=== PATIENT | male | born 1975 | race Caucasian/White ===

== ENCOUNTER 2022-02-07 13:53 | Outpatient (CLI) | payer OTHER ==
--- NOTE | 2022-02-07 15:09 | XRAY Report ---
PROCEDURE: Cervical Spine 2 View INDICATIONS: PAIN TECHNIQUE: 3 view(s) of the cervical spine were acquired. COMPARISON: None. FINDINGS: Bones: No fractures or dislocations to the C7 level. The lateral masses of C1 appear intact on the odontoid view. No suspicious bony lesions. Mild degenerative changes noted in the lower cervical spi ne. Mild C5-C6 and C6-C7 facet arthropathy. Soft tissues: No prevertebral soft tissue swelling. IMPRESSION: 1. Multilevel degenerative disc disease. 2. Multilevel facet arthropathy. 3. No fracture. No acute osseous lesion. If there is continued clinical concern for pathology, then M RI should be considered for further evaluation. Reviewed by: Samantha Hong MD, PhD on 02/07/2022 3:08 PM PST Approved by: Samantha Hong MD, PhD on 02/07/2022 3:08 PM PST Station ID: [id number]
--- NOTE | 2022-02-07 15:10 | XRAY Report ---
PROCEDURE: Knee 3 View BILAT INDICATIONS: PAIN TECHNIQUE: 2 views of the right and left knee(s) were acquired. COMPARISON: None. FINDINGS: Bones: No fractures or dislocations. No suspicious bony lesions. Mild bilateral knee tricompartment al osteoarthritic degenerative changes with marginal osteophytosis. Soft tissues: No joint effusion. No suspicious soft tissue calcifications. IMPRESSION: Mild bilateral knee tricompartmental osteoarthritis. Reviewed by: Samantha Hong MD, PhD on 02/07/2022 3:09 PM PST Approved by: Samantha Hong MD, PhD on 02/07/2022 3:09 PM PST Station ID: [id number]
--- NOTE | 2022-02-07 15:10 | XRAY Report ---
PROCEDURE: Lumbar Spine 2 View INDICATIONS: PAIN TECHNIQUE: 2 views of the lumbar spine were acquired. COMPARISON: None. FINDINGS: Bones: 5 hml-cyl-tkwthrk vertebrae are present. There is normal bony alignment. No vertebral body compression fractures. No suspicious bony lesions. Mild degenerative changes noted throughout the miguel mbar spine. Mild L4-L5 and L5-S1 facet hypertrophy. Soft tissues: Overlying bowel gas pattern is normal. No suspicious soft tissue calcifications. IMPRESSION: 1. Multilevel degenerative disc disease. 2. Multilevel facet arthropathy. 3. No fracture. No acute osseous lesion. If there is continued clinical concern for pathology, then M RI should be considered for further evaluation. Reviewed by: Samantha Hong MD, PhD on 02/07/2022 3:09 PM PST Approved by: Samantha Hong MD, PhD on 02/07/2022 3:09 PM PST Station ID: [id number]
--- NOTE | 2022-02-07 15:12 | XRAY Report ---
PROCEDURE: Shoulder 3 View BILAT INDICATIONS: PAIN TECHNIQUE: 3 views of the of the right shoulder and left shoulder were acquired. COMPARISON: None. FINDINGS: Bones: No fractures or dislocations. No suspicious bony lesions. Visualized ribs appear intact. Mi ld bilateral acromioclavicular joint osteoarthritic degenerative changes. Soft tissues: No suspicious soft tissue calcifications. IMPRESSION: Mild bilateral acromioclavicular joint osteoarthritis. Reviewed by: Samantha Hong MD, PhD on 02/07/2022 3:11 PM PST Approved by: Samantha Hong MD, PhD on 02/07/2022 3:11 PM PST Station ID: [id number]
--- NOTE | 2022-02-07 15:13 | XRAY Report ---
PROCEDURE: Thoracic Spine 2 View INDICATIONS: PAIN TECHNIQUE: 2 views of the thoracic spine were acquired. COMPARISON: None. FINDINGS: Bones: No fractures or dislocations. No suspicious bony lesions. 12 pairs of ribs are noted, and a ppear intact where visualized. Moderate degenerative changes noted in the mid thoracic spine. Mild d egenerative changes in the upper or thoracic spine. Mild facet hypertrophy in the lower thoracic spin e. Soft tissues: No paravertebral stripe thickening. IMPRESSION: 1. Multilevel degenerative disc disease. 2. Multilevel facet arthropathy. 3. No fracture. No acute osseous lesion. If there is continued clinical concern for pathology, then M RI should be considered for further evaluation. Reviewed by: Samantha Hong MD, PhD on 02/07/2022 3:12 PM PST Approved by: Samantha Hong MD, PhD on 02/07/2022 3:12 PM PST Station ID: [id number]
== END 2022-02-07 13:54 | disposition home or self-care (01) ==
LOC: DI 13:53
PROVIDERS: ATTEND Nurse Practitioner Family
DX: M50.30 Other cervical disc degeneration, unspecified cervical region (principal); M47.812 Spondylosis without myelopathy or radiculopathy, cervical region; M17.0 Bilateral primary osteoarthritis of knee; M51.36 Other intervertebral disc degeneration, lumbar region; M47.816 Spondylosis without myelopathy or radiculopathy, lumbar region; M47.817 Spondylosis without myelopathy or radiculopathy, lumbosacral region; M19.011 Primary osteoarthritis, right shoulder; M19.012 Primary osteoarthritis, left shoulder